=== PATIENT | male | born 1940 | race Caucasian/White ===

== ENCOUNTER 2017-03-17 08:16 | Inpatient (IN) | payer MEDICARE, OTHER ==
[~2017-03-17] VITALS: Ht 185.4 cm; Wt 105.4 kg
[2017-03-17] VITALS (10 sets, daily range): BP systolic 143–165; BP diastolic 79–97; PULSE 74–90; RESP 13–20; O2SAT 94–99
--- NOTE | 2017-03-17 03:28 | PCM.HPANE ---
Patient Data Surgeon Admitting Provider: Attending Provider:David Vale DO Primary Care Physician:Mike Chris MD Other Provider:Olamide Lawson Anesthesia Reason for Visit Left Hip Arthritis Ht/WT & BMI Height (Feet): 6 Height (Inches): 0 Weight (Kilograms): 97.9 Body Mass Index 29.00 Allergies Coded Allergies: No Known Allergies (Unverified , 03/12/17) Past Anesthesia History Anesthesia History: Denies:: Abnormal Airway, Anesthesia Reactions, Difficult Intubation, Fam Anesthesia Reaction, Fam Malignant Hypertherm, Malignant Hyperthermia Diabetes History Hx Diabetes?: No MRSA MRSA: No Medications Reported Medications Cholecalciferol (Vitamin D3) (Vitamin D3)2,000 Unit Capsule2,000 Unit PO DAILY 03/12/17 Tramadol 50 Mg [id number] Mg PO HS PRN For Pain Ref 0 03/12/17 Docusate Sodium (Colace)100 Mg [id number] Mg PO DAILY PRN For Constipation Ref 0 03/12/17 Acetaminophen/Diphenhydramine (Tylenol Pm Ex-Strength Caplet)500 Mg-25 Mg Tablet1 Each PO QID 03/12/17 Cyclobenzaprine 10 Mg [id number] Mg PO HS PRN Spasm Ref 0 03/12/17 Aspirin 81 Mg [id number] Mg PO DAILY Ref 0 03/12/17 Discontinued Reported Medications Ergocalciferol (Vitamin D2) (Vitamin D2)400 Unit [id number] Unit PO 03/12/17 History History of ENT Problems?: No HEENT History: Denies:: Abnormal Airway Cataracts Difficult Intubation Dysphagia Glaucoma Hearing Problem Sinus Problem TMJ Denture Type: None Teeth Condition: Within Normal Limits (crowns/secure per pt ) Hx of Heart Problems?: No Cardiovascular History: Positive for:: Abdominal Aortic Aneurism Denies:: AICD Atrial Fibrillation Cardiac Surgery Chest Pain Congestive Heart Failure Coronary Artery Disease Edema Heart Murmur Hypertension Irregular Heartbeat Pacemaker Peripheral Vascular Rheumatic Fever Thrombophlebitis Valvular Heart Disease Hx of Respiratory Problem?: No Respiratory History: Denies:: Pneumonia Pulmonary Embolism Tuberculosis Use of C-PAP Machine Hx Neurologic Problems?: No Neurological History: Denies:: Alzheimer's Disease CVA Dementia Dizziness Headaches Parkinson's Disease Seizures TIA Hx of GI Problems?: No Gastrointestinal History: Denies:: Cirrhosis Diverticulitis Gall Bladder Disease Gastroesphageal Reflux Gastrointestinal Bleeding Heartburn Hepatitis Hiatal Hernia Liver Disease Rectal Bleeding Hx of Problems?: No Genitourinary History: Denies:: HX of Hemodialysis Kidney Stones Urinary Tract Infection Male Hx: Denies:: Prostate Problems Scrotal Mass Testicular Surgery Skin History: Denies:: History Skin Disorders? Pressure Ulcers Hx Musculoskeletal Problems?: Yes Musculoskeletal History: Positive for:: Degenerative Joint Musculoskeletal Trauma (hip replacement) Osteoarthritis Denies:: Back Injury Fibromyalgia Joint Replacement Myasthenia Gravis Rheumatoid Arthritis Systemic Lupus Hx of Psycho/Social Problems?: No Hx Surgeries?: Yes (hernia repairs, Mohs) Other History: Positive for:: Cancer (BCC skin and neck) Hospitalization (hernia repair) Denies:: Endocrine Disease Thyroid Disease History Blood Transfusions: Positive for:: Accept Blood Products? Denies:: Blood Transfusions Hx Diabetes: No Hx Alcohol Use: YesAlcoholic Drinks Per Day: mixed drink 1-2 a dayHx Substance Use: No Smoking Status: Former Smoker (quit many yrs ago) Stop/Bang Treated for Sleep Apnea?: No Do You Have a CPAP Machine?: No S-Snoring: Do You Snore Loudly: Yes T-Tired: feel tired, fatigued: Yes O-Obsered: Observed not breath: No P-Blood Pressure: treated: No B- Body Mass Index > 35 kg/m2: No A- Age over 50: Yes N- Neck Large Circumference: No G- Gender Male: Yes CALEB Total Score: 4 CALEB Risk Assessment: High Risk, =/>3 Yes Risk Assessment Category Category 1A: Patient has history of documented sleep apnea, and HAS NOT received any narcotic, sedative or anesthesia administration during this stay. Category 1B: Patient has history of documented sleep apnea, and HAS received any narcotic , sedative or anesthesia administration during this stay Category 2: Patient has SUSPECTED Obstructive Sleep Apnea, and HAS received any narcotic , sedative or anesthesia administration during this stay. Category 3: Patient has SUSPECTED Obstructive Sleep Apnea and HAS NOT received narcotic, sedative or anesthesia administration during this stay. Category 4: Outpatient in Procedural Areas with known sleep apnea or who screen positive for High Risk via the STOP/BANG questionnaire. Exam Exam General Appearance: Alert, Oriented X3 HEENT/AIRWAY: MP 3 Lungs: Clear to Auscultation Heart: Exam Unremarkable Plan Impression Patient chart reviewed, patient interviewed and anesthestic plan with risks, benefits, and alternatives discussed, and informed consent obtained. ASA Physical Status: ASA3 Severe Disease Anesthetic Plan: GA Bene/Risks/Altern/Consents: Yes HP Complete Prior to Induction: Yes Karen Astorga MD Mar 17, 2017 03:28
[2017-03-17] MEDS: Lactated Ringer's 1,000 ML IV SCH ×3 (05:00→10:36)
[2017-03-17] MEDS: Vancomycin Inj 1,500 MG in 0.9% Sodium Chloride 500 ML IV SCH ×2 (06:00→08:50)
[2017-03-17] MEDS: CeFAZolin 2 Gm/50 mL D5W IV Premix IV SCH ×2 (06:00→11:20)
[~2017-03-17 08:16] MED LIST: ACET-2605 PO; ASPI-973 PO; CHOL200047 PO; CYCL10TA9 PO; DOCU-41 PO; TRAM50TA2 PO
[2017-03-17] MEDS ORDERED: Lactated Ringer's 1,000 ML IV ONE ×2 (09:20→13:18)
[2017-03-17] MEDS ORDERED: Bupivacaine Liposome 1.3% 20 mL Inj ONE (10:26)
[2017-03-17] MEDS ORDERED: Lactated Ringer's 1,000 ML IV SCH (10:29)
[2017-03-17] MEDS ORDERED: Lactated Ringer's 500 ML IV PRN (10:29)
[2017-03-17] MEDS ORDERED: Labetalol 5 mg/mL 20 mL Inj IV PRN (10:30)
[2017-03-17] MEDS ORDERED: EPHEDrine Sulfate 50 mg/mL Inj IVPUSH PRN (10:30)
[2017-03-17] MEDS ORDERED: Dexamethasone 4 mg/mL Inj IVPUSH PRN (10:30)
[2017-03-17] MEDS ORDERED: Phenylephrine 10,000 mCg/mL Inj IVPUSH PRN (10:30)
[2017-03-17] MEDS ORDERED: HYDROmorphone 1 mg/mL Inj IVPUSH PRN ×2 (10:30→14:10)
[2017-03-17] MEDS ORDERED: Ondansetron 2 mg/mL 2 mL Inj IVPUSH PRN ×2 (10:30→14:10)
[2017-03-17] MEDS ORDERED: MetoCLOpramide 5 mg/mL 2 mL Inj IVPUSH PRN (10:30)
[2017-03-17] MEDS ORDERED: Bupivacaine-MPF 0.25% 30 mL Inj INFILTRATE ONE (11:34)
[2017-03-17] MEDS ORDERED: 0.9% Sodium Chloride 10 mL Inj INFILTRATE ONE (11:34)
[2017-03-17] MEDS ORDERED: Tranexamic Acid 100 mg/mL 10 mL Inj ONE (12:45)
[2017-03-17] MEDS ORDERED: 0.9% Sodium Chloride 100 ML ONE (12:45)
[2017-03-17] MEDS: fentaNYL-PF 50 mCg/mL 2 mL Inj IVPUSH PRN ×2 (14:05→14:25)
[2017-03-17] MEDS ORDERED: Magnesium Hydroxide 10 mL Oral Concentration PO PRN (14:10)
[2017-03-17] MEDS ORDERED: HYDROcodone-APAP 7.5-325 mg Tablet PO PRN (14:10)
[2017-03-17] MEDS ORDERED: Polyethylene Glycol (PEG) 17 Gm Powder PO PRN (14:10)
[2017-03-17] MEDS ORDERED: diphenhydrAMINE 25 mg Capsule PO PRN (14:10)
--- NOTE | 2017-03-17 14:40 | OP ---
[address] [address] OPERATIVE REPORT PATIENT: JARETT CHAMORRO : 1940 MR#: [id number] ADMIT: 03/17/2017 JOB ID: [id number] DATE OF SURGERY: 03/17/2017 SURGEON: David Vale MD RUBBER ROLLER GRINDER OPERATOR: Kiki San PA-C PREOPERATIVE DIAGNOSIS(ES): Left hip degenerative joint disease. POSTOPERATIVE DIAGNOSIS(ES): Left hip degenerative joint disease. PROCEDURE: Left direct anterior total hip arthroplasty. INDICATIONS: The patient is a 76-year-old male with left hip severe degenerative arthritis who has failed conservative measures and wished to proceed with a left direct anterior total hip arthroplasty. We discussed the risks, benefits, and possible complications of surgery. All questions were answered. He wished to proceed. A family and divorce legal assistant was required for the successful completion of the procedure. PROCEDURE IN DETAIL: The patient is brought to the operating room. He was given preoperative antibiotic, 1 g TXA preoperatively and preoperative time out was performed. He was placed comfortably onto the [place] table. The left hip was sterilely prepped and draped. An incision was made about 3 cm lateral and 2 cm distal to the ASIS overlying the TFL. Dissection was carefully carried through subcutaneous tissue. The fascia overlying the tensor was identified and incised. The fascial plane between the muscle and the superior fascia of the TFL was utilized and dissection was carefully carried down deep until the circumflex vessels were encountered. These were tied and then ligated and retractors were then placed anterior on either side of the femoral neck. A T-shaped capsular incision was made and retractors were then placed intracapsular. Fluoroscopy was used to determine the placement of the neck cut, and a neck cut was performed completed with an osteotome and the head fragment was carefully removed. Next, the acetabulum was prepared. Anterior and posterior acetabulum retractors were placed and the pulvinar and labrum were removed. The acetabulum was reamed sequentially up to a 55 for a 56 cup. Fluoroscopy was used to direct placement of the cup which had excellent position. This was impacted into position. It was further secured with a single superior dome screw, which had excellent fixation. I elected to place the 56 x 36 neutral liner, and then moved on to the femur. We performed release on the lateral femur as it was externally rotated in order to get out onto the trochanter, and rongeur and a box osteotome were used to begin a lateralized starting position on the femur. The femur was then sequentially broached up to a size 4, which had excellent fit and fill and had great position on C-arm. We did trials and ultimately decided to go with the 8.5 head which allowed for excellent leg lengths, equal leg lengths, great stability and range of motion. The DePuy Tri-Lock four standard stem was impacted into position and then the 8.5 ceramic head was impacted, the hip was reduced and again fluoroscopy was used to confirm placement and leg length. The wound was then irrigated and some local anesthetic; Marcaine mixed with Exparel was added and the wound was then closed with #1 Surgilon to repair the capsule. The fascia overlying the TFL was repaired with a running 0-Vicryl and the subcu was closed with 2-0 and 3-0 Vicryl. The skin was closed with a running subcuticular 4-0 Monocryl and sterile dressings were applied. Patient tolerated the procedure well. Blood loss was 300 cc. POSTOPERATIVE PROTOCOL: Have the patient weightbear to tolerance. Use a walker for ambulation. I would like him to use compression over the surgical wound for 24 hours postoperatively and follow up in two weeks or sooner if needed. Will plan to use aspirin for DVT prophylaxis.
--- NOTE | 2017-03-17 15:19 | DRSVH ---
PROCEDURE: X-RAY PELVIS W/LAT HIP (LT) ([id number]) INDICATIONS: POST-OP TECHNIQUE: AP pelvis and lateral view of the left hip acquired. COMPARISON: [facility], , XR PELVIS W LATERAL HIP LT, 11/27/2016, 9:17. FINDINGS: Bones: Patient is status post left hip arthroplasty, with hardware components in expected positions. The hip joint appears congruent. The visualized bony structures appear intact. Degenerative osorio es of the sacroiliac joints and right hip are similar to the prior exam. Soft tissues: Overlying postoperative changes are noted with areas of soft tissue air and soft tissu e edema. No unexpected radiopaque foreign bodies are evident. No suspicious soft tissue densities. IMPRESSION: Expected postoperative changes related to a left hip arthroplasty. Dictated by: Nakul Olivares M.D. on 03/17/2017 at 14:13 Approved by: Nakul Olivares M.D. on 03/17/2017 at 14:17
--- NOTE | 2017-03-17 15:21 | PCM.ANEP1 ---
Post Anesthesia PACU Phase 1 Assessment Vital Signs Vital Signs Date Time Temp Pulse Resp B/P Pulse Ox O2 Delivery O2 Flow Rate FiO2 03/17/17 15:00 80 13 154/88 94 Room Air 03/17/17 14:50 83 15 157/80 95 Room Air 03/17/17 14:35 79 14 149/79 95 Room Air 03/17/17 14:25 79 16 152/86 96 Room Air 03/17/17 14:09 80 16 149/87 95 Room Air 03/17/17 14:05 81 15 158/85 94 Room Air 03/17/17 14:00 82 14 152/88 99 Simple Mask 10 03/17/17 13:55 36.6 81 14 156/82 98 Simple Mask 10 03/17/17 08:45 36.9 86 18 148/86 97 Room Air Anesthetic Administered: GA Level of Alertness: Awake, talking GOZNALES's with Equal Strength: Yes Pain: No Nausea or Vomiting: No CV Function & Hydration Stable: Yes Airway Device: Oxygen Delivery: Room Air Lungs: Clear to Auscultation PACU Phase 2 Assessment Complications: No Follow up Care: No Patient Instructions Provided: Yes Karen Astorga MD Mar 17, 2017 15:21
[2017-03-17] MEDS ORDERED: Propofol 10,000 mCg/mL 20 mL Inj ONE (15:22)
[2017-03-17] MEDS ORDERED: fentaNYL-PF 50 mCg/mL 2 mL Inj ONE (15:22)
[2017-03-17] MEDS ORDERED: Phenylephrine/NS 100 mCg/mL 10 mL Syringe IVPUSH ONE (15:22)
[2017-03-17] MEDS: 0.9% Sodium Chloride 1,000 ML IV SCH (16:56)
[2017-03-17] MEDS: Sodium Chloride LOK Flush 10 mL Syringe IV SCH (16:56)
--- NOTE | 2017-03-17 16:56 | NUR ---
Postop Pt comes via byron from PACU postop left anterior approach hip Sx. 3L NS bag over groin site for weight to stay on for 24hr while sitting or laying down. Pt c/o 5/10 pain in back mostly 3/20 pain in Lt hip. IV Left FA. Denies CP, Nausea, SOB. On RA. Vitals stable. A&OX4. Has not voided at this time and no juan catheter in place. Dressing gauze under bio-occlusive and groin inc dermabond. All sensation in tact. Wiggles toes and foot on left leg. Care continues
[2017-03-17] MEDS: hydrOXYzine Pamoate 25 mg Capsule PO PRN ×2 (18:17→22:08)
[2017-03-17] MEDS: Senna-Docusate 8.6-50 mg Tablet PO SCH (19:46)
[2017-03-17] MEDS: CeFAZolin Inj 2 GM in IV Premix 1 EACH IV SCH (19:46)
[2017-03-18] MEDS: 0.9% Sodium Chloride 1,000 ML IV SCH ×2 (00:10→09:25)
[2017-03-18] MEDS: Sodium Chloride LOK Flush 10 mL Syringe IV SCH ×2 (00:30→09:25)
[2017-03-18] MEDS: CeFAZolin Inj 2 GM in IV Premix 1 EACH IV SCH (03:14)
--- NOTE | 2017-03-18 03:20 | NUR ---
Activity Pt reporting minimal pain 1-2/10 and has only wanted to take Vistaril this shift for some spasms. Pt reported this to be effective. Pt up to BR to use urinal with SBA and FWW, tolerating activity well. Pt has gauze/bio-occlusive dressing that is CDI with weight bag over site (until 1500 on 03/18) Pt has SCDs on. Orthos intact. Pt tolerating fluids and diet. Excellent urine output so far (1500cc). Will SL IV once last antibiotic is done infusing.
[2017-03-18 04:45] VITALS: BP 145/76; PULSE 86; RESP 17; O2SAT 97
[2017-03-18 06:08] LABS: BASOPHILS % (AUTO) 0.2 % (0-3); EOSINOPHILS % (AUTO) 0.7 % (0-5); MONOCYTES % (AUTO) 14.3 % (4-12); Mean Corpuscular Volume 104.5 fL (81-100); NEUTROPHILS % (AUTO) 68.8 % (40-74); Platelet Count 226 bil/L (150-400)
[2017-03-18 06:18] LABS: APPEARANCE,URINE CLEAR (CLEAR,HAZY); COLOR,URINE YELLOW (YELLOW); OCCULT BLOOD,URINE NEGATIVE (NEGATIVE); PH,URINE 7.5 (5.0-8.0); UROBILINOGEN,URINE NORMAL (NORMAL)
--- NOTE | 2017-03-18 08:36 | PCM.PNORTH ---
Subjective Date of Service: Mar 18, 2017 Visit Information: Reason for Visit Left Hip Arthritis Surgery/Surgery Date LEFT TOTAL HIP 03/17/17 Post-Op Day # 1 Date of Admission: Mar 17, 2017 at 15:21 Hospital Day # Subjective Patient reports he is having minimal pain. He is only taking Tylenol. He is anxious to go home. He complains of low back pain from being in the bed so much. Postop General: No Complaints, No Shortness of Breath, No Chest Pain Pain Management: PO Objective Exam Objective Patient is seen sitting up at bedside Vital Signs and I/O Vital Sign - Last Date Time Temp Pulse Resp B/P Pulse Ox O2 Delivery O2 Flow Rate FiO2 03/18/17 04:45 36.5 86 17 145/76 97 Room Air 03/17/17 14:00 10 Intake and Output 03/17/17 03/17/17 03/18/17 Cumulative From/Thru 15:00 23:00 07:00 03/12/17 16:37 - 03/18/17 06:14 Intake Total 1370 ml 400 ml 1938 ml 3708 ml Output Total 300 ml 450 ml 1950 ml 2700 ml Balance 1070 ml -50 ml -12 ml 1008 ml Intake Oral 400 ml 920 ml 1320 ml IV Total 1370 ml 1018 ml 2388 ml Output Urine Total 450 ml 1950 ml 2400 ml Estimated Blood Loss 300 ml 300 ml # Voids 2 2 # Bowel Movements 0 0 0 Lab & Micro Results Laboratory Tests Test 03/18/17 05:00 03/18/17 05:15 Urine Color Yellow (YELLOW) Urine Appearance Clear (CLEAR,HAZY) Urine pH 7.5 (5.0-8.0) Urine Specific [place] 1.015 (1.003-1.035) Urine Protein Negativemg/dL (NEG,TRACE) Urine Glucose (UA) Negativemg/dL (NEGATIVE) Urine Ketones Negativemg/dL (NEGATIVE) Urine Occult Blood Negative (NEGATIVE) Urine Nitrite Negative (NEGATIVE) Urine Bilirubin Negative (NEGATIVE) Urine Urobilinogen Normalmg/dL (NORMAL) Urine Leukocyte Esterase Negative (NEGATIVE) Urine RBC 0-2/hpf (0-2) Urine WBC 0-5/hpf (0-5) Urine Epithelial Cells Occasional/hpf (NONE-MOD) Urine Crystals None seen (NONE SEEN) Urine Bacteria None/hpf (NONE-FEW) Urine Hyaline Casts None/lpf (NONE) Urine Granular Casts None seen (NONE SEEN) Urine Waxy Casts None seen (NONE SEEN) Urine Red Blood Cell Casts None seen (NONE SEEN) Urine White Blood Cell Casts None seen (NONE SEEN) Urine Mucus None seen (None Seen) Urine Trichomonas None seen (NONE SEEN) Urine Yeast None (NONE SEEN) Urinalysis Comment None Urine Culture Reflexed Not indicated White Blood Count 10.0th/mm3 (3.8-10.1) Red Blood Count 3.79mil/mm3 (4.40-5.80) Hemoglobin 12.9g/dL (13.8-17.2) Hematocrit 39.6% (41.0-50.0) Mean Corpuscular Volume 104.5fL (81-100) Mean Corpuscular Hemoglobin 34.0pg (27.0-35.0) Mean Corpuscular Hemoglobin Concent 32.6% (32.0-37.0) Red Cell Distribution Width 12.9% (12.3-15.4) Platelet Count 226bil/L (150-400) Neutrophils (%) (Auto) 68.8% (40-74) Lymphocytes (%) (Auto) 15.8% (14-46) Monocytes (%) (Auto) 14.3% (4-12) Eosinophils (%) (Auto) 0.7% (0-5) Basophils (%) (Auto) 0.2% (0-3) Sodium Level 136mEq/L (134-144) Potassium Level 4.1mEq/L (3.5-5.2) Chloride Level 100mEq/L (97-108) Carbon Dioxide Level 28mmol/L (18-29) Blood Urea Nitrogen 8mg/dL (8-27) Creatinine 0.71mg/dL (0.76-1.27) Estimat Glomerular Filtration Rate 114mL/min (>59) Glucose Level 131mg/dL (60-99) Calcium Level 8.4mg/dL (8.5-10.1) Result Diagram: 03/18/1751403/18/17514 General Appearance: Alert, Oriented X3, Cooperative, No Acute Distress Extremities: Distal Pulses Palpable, No Compartment Syndrom Noted, Thigh & Calf Soft/Nontender Postop Sensory Motor: Distal Motor Intact, NVI Distally SURGICAL WOUND : Wound Location/Description Left hip: Surgical dressing is clean, dry and intact Activity: Activity per PT Catheters: None Assessment & Plan Impression POD #1 status post left direct anterior total hip arthroplasty Problems: Plan Weightbearing: Weightbearing as tolerated left lower extremity with walker DVT prophylaxis: aspirin 325 mg twice a day 6 weeks Physical therapy for transfers, progressive ambulation, therapeutic exercise Hip precaution positions: No external rotation past 90 Wound care: Change dressing at home on postop day 2 Discharge plan: Discharge home today. Discharge instructions are reviewed with the patient Follow-up plan: In 2 weeks at [facility] with [facility] for wound check and at [address] Vale with x-rays Pain Management: Tylenol, Vistaril VTE Prophylaxis: SCDs, Other (aspirin 325 mg twice a day) Resuscitation Status: CPR: Attempt Resuscitation Kiki San PA-C Mar 18, 2017 08:36
[2017-03-18] MEDS: Senna-Docusate 8.6-50 mg Tablet PO SCH (09:25)
[2017-03-18 09:30] VITALS: BP 143/79; PULSE 108; RESP 16; O2SAT 95
--- NOTE | 2017-03-18 10:27 | PCM.DIORTH ---
Ortho Discharge Instruction Date of Service: Mar 18, 2017 Dates of Hospitalization Date of Hospital Admission Mar 17, 2017 at 15:21 Providers Admitting Physician: David Vale DO Primary Care Physician: Mike Chris MD Attending Physician: David Vale DO Diet Discharge Diet: No restrictions Activity Discharge Activity-General: Try not to overdue, Be up and about, Balance rest and activity, Ice incision 3-5 time/day for 20min Left Lower Extremity: Weight Bearing as tolerated Discharge Assist Device: Front Wheeled Walker (x 3 weeks) Dressing and Incisional Care Discharge Dressing Care: Keep dressing clean, dry & intact Discharge Hygiene: May shower (see instructions below) Additional Instructions Discharge Instructions Weightbearing: Weightbearing as tolerated left lower extremity with walker DVT prophylaxis: aspirin 325 mg twice a day 6 weeks Hip precaution positions: No external rotation past 90 Wound care: Change dressing at home on . Change dressing every 2-3 days as needed. On the patient may shower if the wound has no drainage present. Wound may be uncovered to shower. Let soap and water run over the wound, pat dry and apply a new dressing. Save the silver dressing. Get it wet with 1 syringe of saline and applied a silver side towards the skin. Handle the dressing only by the corners. Apply a new bandage. Do not let the adhesive cross the crease of the skin on the front of the hip. Trim the adhesive if needed. Increased your walking a little more each day. Use the walker for the first 3 weeks. Follow Up Plan Follow Up Plan Follow-up plan: In 2 weeks at [facility] with [facility] for wound check and at [address] Vale with x-rays Call your provider for: Fever, Chills, Shortness of breath, Vomitting, Drainage at incision (that is increasing), Wound redness (that is spreading), Increasing pain (for no reason) Kiki San PA-C Mar 18, 2017 10:27
[2017-03-18] MEDS ORDERED: HYDR-3797 PO (10:29)
[2017-03-18] MEDS ORDERED: Aspirin-Expunged Drug, Do Not Renew! PO (10:29)
--- NOTE | 2017-03-18 10:32 | PCM.DC.ORT ---
Discharge Summary Date of Service: Mar 18, 2017 Date of Hospital Admission: Mar 17, 2017 at 15:21 Date of Surgery: Mar 17, 2017 Date of Discharge: Mar 18, 2017 Reason for Hospitalization: Left hip arthritis Procedures Performed: Direct anterior left total hip arthroplasty Hospital Course: The patient was admitted to the hospital on 03/17/2017 and underwent the above procedure. Antibiotic prophylaxis consisting of Ancef and vancomycin. The surgeon was Dr. Vale. Patient tolerated the procedure well and was transferred to recovery room in stable condition. The patient had physical therapy to work on ambulation and transfers. Weightbearing as tolerated with walker. Pain was managed with Vistaril, and Tylenol. Patient declined narcotics. DVT prophylaxis: Aspirin 325 mg twice a day, SCDs and GENESIS hose Patient progressed well with physical therapy and on POD-1 was discharged home. Follow-up: at [facility] 2 weeks postop for wound check and at [address] Vale with x-ray Diagnosis at Time of Discharge Status post left hip direct anterior arthroplasty Problems: Disposition: Discharged home in stable condition Additional Information Follow-up at [facility] in 2 weeks with PA for wound check and at [address] Vale with x-ray Discharge Instructions: Discharge Activity-General: Try not to overdue, Be up and about, Balance rest and activity, Ice incision 3-5 time/day for 20min Left Lower Extremity: Weight Bearing as tolerated Discharge Assist Device: Front Wheeled Walker (x 3 weeks) Discharge Dressing Care: Keep dressing clean, dry & intact Discharge Hygiene: May shower (see instructions below) Weightbearing: Weightbearing as tolerated left lower extremity with walker DVT prophylaxis: aspirin 325 mg twice a day 6 weeks Hip precaution positions: No external rotation past 90 Wound care: Change dressing at home on . Change dressing every 2-3 days as needed. On the patient may shower if the wound has no drainage present. Wound may be uncovered to shower. Let soap and water run over the wound, pat dry and apply a new dressing. Save the silver dressing. Get it wet with 1 syringe of saline and applied a silver side towards the skin. Handle the dressing only by the corners. Apply a new bandage. Do not let the adhesive cross the crease of the skin on the front of the hip. Trim the adhesive if needed. Increased your walking a little more each day. Use the walker for the first 3 weeks. ([Aspirin-Expunged Drug, Do Not Renew!]) 325 MG TABLET 325 MG PO BID for 6 weeks after surgery Acetaminophen/Diphenhydramine (Tylenol Pm Ex-Strength Caplet) 500 Mg-25 Mg Tablet 1 EACH PO QID Cholecalciferol (Vitamin D3) (Vitamin D3) 2,000 Unit Capsule 2,000 UNIT PO DAILY Cyclobenzaprine (Cyclobenzaprine) 10 Mg Tablet 10 MG PO HS PRN PRN Spasm Docusate Sodium (Colace) 100 Mg Capsule 100 MG PO DAILY PRN PRN For Constipation Hydroxyzine Pamoate (HydrOXYzine Pamoate) 25 Mg Capsule 25 MG PO Q6H PRN PRN For Spasm and/or Restlessness Tramadol (Tramadol) 50 Mg Tablet 50 MG PO HS PRN PRN For Pain Kiki San PA-C Mar 18, 2017 10:32
--- NOTE | 2017-03-18 10:57 | NUR ---
Social Work: Initial Assessment/Discharge/Multidisciplinary Rounds D: EMR reviewed. Please see Initial Assessment linked to this note for more information. Pt is a 76 year old male admitted [place] with a readmit risk score of 2 for elective anterior left hip replacement per H&P. Pt's insurance is Medicare and [employer] [facility]. PCP is [facility] in [facility]. Pt discussed in multidisciplinary rounds, pt is POD 1. Pt will discharge today, no SW needs identified. No concerns related to pt's capacity for self-care. SW met with pt at bedside to conduct initial assessment. Pt was alert and oriented x3. SW explained role and wrote phone number on white board. SW provided [facility] Discharge Planning Checklist and encouraged pt to contact SW for any discharge planning questions. Pt lives at home with his spouse in [place]. Pt is independent with all ADLs at baseline. Pt uses no DME at baseline, but has a walker available for use at discharge. Pt drives. Pt has no HH or SNF history. Pt has no LTC or VA benefits. Pt has no DPOA on file, pt has information already. Pt to d/c home with to transport via POV. No additional d/c needs. A: Pt who is independent at baseline and has the capacity for self-care. P: Pt to discharge home with to transport via POV. No SW needs identified, no MD orders received at this time. CANDELARIA Salinas Addendum: 03/18/17 at 1101 by ANN GALLEGO SS Amended: Links added.
--- NOTE | 2017-03-18 12:44 | NUR ---
DISCHARGE Patient denies pain. Tolerating liquids PO and his diet well. Denies nausea. No emesis noted. Denies SOB. Patient is able to ambulate with SBA and the FWW. Gait is steady. Tolerated activity well. Dressing is CDI. Oswald hose are on. Voiding without any problems. IV saline lock d/cd. Discharge instructions, care notes and prescription was given to the patient and he verbalized understanding. Discharged to home with his and all his personal belongings. (Copy of D/C is in the chart).
== END 2017-03-18 12:44 | disposition home or self-care (01) | DRG 470 ==
LOC: SAS 08:16 → OSC 15:21
PROVIDERS: ADMIT Orthopaedic Surgery; ATTEND Orthopaedic Surgery
PROC: 0SRB03A Replacement of Left Hip Joint with Ceramic Synthetic Substitute, Uncemented, Open Approach (ICD-10-PCS; principal; 2017-03-17 10:15)
DX: M16.12 Unilateral primary osteoarthritis, left hip (principal)